=== PATIENT | female | born 1995 | race Caucasian/White ===

== ENCOUNTER 2024-02-08 14:23 | Inpatient (IN) | payer OTHER ==
[~2024-02-08] VITALS: Ht 157.5 cm; Wt 76.2 kg
[2024-02-08] MEDS: IV NS 0.9% 1,000 ML BAG IV ONE (14:30)
[2024-02-08] MEDS: LORAZEPAM INJ 2 MG/ML VIAL IV ONE (14:35)
[2024-02-08] MEDS ORDERED: LORAZEPAM INJ 2 MG/ML VIAL ONE (14:45)
[2024-02-08 14:55] LABS: BASOPHILS % (AUTO) 0.4 % (0.0-2.0); EOSINOPHILS # (AUTO) 0.1 K/uL (0.0-0.7); EOSINOPHILS % (AUTO) 0.7 % (0.0-6.0); HEMATOCRIT 45 % (33-45); HEMOGLOBIN 15.5 g/dL (11.5-14.8); LYMPHOCYTES # (AUTO) 1.7 K/uL (0.8-4.8); LYMPHOCYTES % (AUTO) 15.3 % (20.0-44.0); MEAN CORPUSCULAR HEMOGLOBIN 35 PG (26.0-33.0); MEAN CORPUSCULAR HGB CONC 34 g/dl (31.0-36.0); MEAN CORPUSCULAR VOLUME 102 fL (82-100); MONOCYTES # (AUTO) 0.4 K/uL (0.1-1.30); NEUTROPHILS # (AUTO) 8.8 K/uL (1.8-8.9); NEUTROPHILS % (AUTO) 79.6 % (43.0-81.0); PLATELET COUNT (AUTO) 299 K/uL (150-450); RED BLOOD CELL COUNT(AUTO) 4.45 MIL/uL (4.0-5.2); RED CELL DISTRIBUTION WIDTH 12.6 % (11.5-15.0)
[2024-02-08 15:01] LABS: CALCIUM, SERUM 9.5 mg/dL (8.5-10.1); CARBON DIOXIDE 25 mmol/L (21-32); CHLORIDE 101 mmol/L (98-107); CREATININE 0.8 mg/dL (0.6-1.3); GLUCOSE 125 mg/dL (74-106); POTASSIUM 3.4 mmol/L (3.5-5.1); SODIUM SERUM 139 mmol/L (136-145); UREA NITROGEN, BLOOD 12 mg/dL (7-18)
[2024-02-08 15:15] LABS: ALANINE AMINOTRANSFERASE 22 U/L (12-78); ALBUMIN 4.7 g/dL (3.4-5.0); ALCOHOL, BLOOD 5 mg/dL (0-10); ALKALINE PHOSPHATASE 60 U/L (46-116); ASPARTATE AMINOTRANSFERASE 16 U/L (15-37); BILIRUBIN,DIRECT 0.1 mg/dL (0.0-0.2); BILIRUBIN,TOTAL 0.5 mg/dL (0.2-1.0); SALICYLATE 0.8 mg/dL (2.8-20.0)
[2024-02-08 15:16] LABS: ACETAMINOPHEN <10 ug/ml (10-30)
[2024-02-08] MEDS ORDERED: ONDANSETRON HCL/PF 4 MG/2 ML VIAL ONE (15:48)
[2024-02-08] MEDS: ONDANSETRON HCL/PF - ER 4 MG/2 ML VIAL IV ONE (16:00)
[2024-02-08] MEDS ORDERED: MORPHINE SULFATE INJ 4 MG/ML DISP.SYRIN ONE (16:31)
[2024-02-08] MEDS: MORPHINE SULFATE INJ 2 MG/ML DISP.SYRIN IV ONE (16:40)
[2024-02-08] MEDS ORDERED: LORA10TA7 PO (18:21)
[2024-02-08] MEDS ORDERED: [UNRECOGNIZED DRUG - OTHER] PO (18:21)
[2024-02-08] MEDS ORDERED: Z GUARD REMEDY 4 OZ OINT TP PRN (19:00)
[2024-02-08] MEDS ORDERED: FAMOTIDINE/PF INJ 20 MG/2 ML VIAL IV ONE (19:00)
[2024-02-08] MEDS ORDERED: MAG HYDROX/AL HYDROX/SIMETH 30 ML UDC PO PRN (19:00)
[2024-02-08] MEDS ORDERED: diphenhydrAMINE HCL 50 MG/ML VIAL IV PRN (19:00)
[2024-02-08] MEDS: methylPREDNISolone SOD SUCC 125 MG/2ML VIAL IV ONE (19:00)
[2024-02-08] MEDS ORDERED: MAGNESIUM HYDROXIDE 30 ML UDC PO PRN (19:00)
[2024-02-08] MEDS ORDERED: methylPREDNISolone SOD SUCC 125 MG/2ML VIAL ONE (21:05)
[2024-02-08 22:30] VITALS: BP 117/77; TEMP 98.8; O2SAT 100
[2024-02-08 22:35] VITALS: BP 117/77; TEMP 98.8; O2SAT 100
[2024-02-08] MEDS: IV NS 0.9% 1,000 ML IV PRN (23:15)
[2024-02-09] MEDS: ACETAMINOPHEN 325 MG TABLET PO PRN (00:26)
[2024-02-09] MEDS: ONDANSETRON HCL/PF 4 MG/2 ML VIAL IVP PRN (00:26)
[2024-02-09 07:03] LABS: APPEARANCE,URINE CLOUDY (CLEAR); BILIRUBIN,URINE 1+ (NEGATIVE); BLOOD, URINE NEGATIVE Ery/uL (NEGATIVE); COLOR,URINE YELLOW (YELLOW); KETONES,URINE 1+ mg/dL (NEGATIVE); LEUKOCYTE ESTERASE ,URINE NEGATIVE (NEGATIVE); NITRITE, URINE NEGATIVE (NEGATIVE); PROTEIN,URINE TRACE mg/dl (NEGATIVE); UGLUCOSE NEGATIVE (NEGATIVE)
[2024-02-09 07:17] LABS: PREGNANCY TEST URINE QUAL NEGATIVE (NEGATIVE)
[2024-02-09 07:19] LABS: BASOPHILS % (AUTO) 0.1 % (0.0-2.0); HEMATOCRIT 46 % (33-45); LYMPHOCYTES % (AUTO) 9.2 % (20.0-44.0); MEAN CORPUSCULAR HEMOGLOBIN 34 PG (26.0-33.0); MEAN CORPUSCULAR HGB CONC 33 g/dl (31.0-36.0); MEAN CORPUSCULAR VOLUME 102 fL (82-100); MONOCYTES # (AUTO) 0.1 K/uL (0.1-1.30); MONOCYTES % (AUTO) 0.9 % (2.0-12.0); NEUTROPHILS # (AUTO) 10.2 K/uL (1.8-8.9); NEUTROPHILS % (AUTO) 89.8 % (43.0-81.0); PLATELET COUNT (AUTO) 312 K/uL (150-450); RED BLOOD CELL COUNT(AUTO) 4.48 MIL/uL (4.0-5.2); RED CELL DISTRIBUTION WIDTH 12.5 % (11.5-15.0); WHITE BLOOD COUNT (AUTO) 11.3 K/uL (4.3-11.0)
[2024-02-09 07:40] LABS: CALCIUM, SERUM 8.6 mg/dL (8.5-10.1); CREATININE 0.7 mg/dL (0.6-1.3); MAGNESIUM 2.1 mg/dL (1.8-2.4); PHOSPHORUS 3.8 mg/dL (2.5-4.9); POTASSIUM 3.9 mmol/L (3.5-5.1)
[2024-02-09 08:00] VITALS: BP 110/70; TEMP 98.6; O2SAT 99
[2024-02-09 08:01] LABS: ADD URINE CULTURE NO; BACTERIA,URINE Few /HPF (None Seen); RBC,URINE 0-2 /HPF (0-2); SQUAMOUS EPITHELIAL CELL,UR 0-2 /HPF (None Seen); URINE AMORPHOUS URATE Many /HPF (None Seen); WBC,URINE NONE SEEN /HPF (0-3)
[2024-02-09 08:03] LABS: MUCUS,URINE Few /LPF (None Seen)
[2024-02-09 08:47] LABS: AMPHETAMINE, URINE NEGATIVE (NEGATIVE); BARBITURATE, URINE NEGATIVE (NEGATIVE); BENZODIAZEPINE, URINE NEGATIVE (NEGATIVE); CANNABINOID, URINE NEGATIVE (NEGATIVE); COCCAINE, URINE NEGATIVE (NEGATIVE); PHENCYCLIDINE SCREEN,URINE NEGATIVE (NEGATIVE)
[2024-02-09 08:49] LABS: OPIATE, URINE POSITIVE (NEGATIVE)
[2024-02-09] MEDS: LORATADINE 10 MG TABLET PO SCH (09:16)
[2024-02-09] MEDS: FAMOTIDINE/PF INJ 20 MG/2 ML VIAL IV SCH (14:15)
[2024-02-09 15:58] VITALS: BP 106/59; TEMP 99.1; O2SAT 98
[2024-02-09 20:00] VITALS: BP 104/61; TEMP 98.2; O2SAT 100
[2024-02-10 07:00] VITALS: BP 112/77; TEMP 98.1; O2SAT 100
[2024-02-10] MEDS: FAMOTIDINE (20 MG) 20 MG TABLET PO SCH (08:15)
[2024-02-10] MEDS ORDERED: [UNRECOGNIZED DRUG - OTHER] PO SCH ×2 (09:00)
[2024-02-10] MEDS ORDERED: FAMO20TA80 PO (14:52)
== END 2024-02-10 16:15 | disposition home or self-care (01) | DRG 916 ==
LOC: ER 14:25 → MED 21:59
PROVIDERS: ADMIT Nurse Practitioner Acute Care; ATTEND Nurse Practitioner Acute Care
DX: T78.3XXA Angioneurotic edema, initial encounter (principal); E66.9 Obesity, unspecified; F41.9 Anxiety disorder, unspecified; K21.9 Gastro-esophageal reflux disease without esophagitis; Z20.822 Contact with and (suspected) exposure to COVID-19; Z77.098 Contact with and (suspected) exposure to other hazardous, chiefly nonmedicinal, chemicals; Y93.89 Activity, other specified; Y92.219 Unspecified school as the place of occurrence of the external cause; R10.9 Unspecified abdominal pain; Z68.30 Body mass index [BMI] 30.0-30.9, adult; R11.2 Nausea with vomiting, unspecified; R20.0 Anesthesia of skin
CPT/HCPCS: 36415; 71045-TC; 80048-TC; 80076-TC; 81001; 83735-TC; 84100-TC; 84702-TC; 84703-TC; 85025-TC; A4223; G0378; G0480; J2060; J2270; J2405; J2919; J3490; J7030